=== PATIENT | female | born 1950 | race Caucasian/White ===

== ENCOUNTER → 2017-09-11 | Outpatient (CLI) | payer MEDICARE, OTHER | LOC: GMAB 11:03 | PROVIDERS: ATTEND Family Medicine | DX: I10 Essential (primary) hypertension (principal) ==

== ENCOUNTER → 2019-01-07 | Outpatient (CLI) | payer OTHER | LOC: GMAE 10:24 | PROVIDERS: ATTEND Family Medicine | DX: I10 Essential (primary) hypertension (principal) ==

== ENCOUNTER 2019-01-15 05:41 | Day surgery (SDC) | payer OTHER ==
[2019-01-15] MEDS ORDERED: LACTATED RINGERS 1,000 ML ONE (07:04)
[2019-01-15] MEDS ORDERED: LACTATED RINGERS 1,000 ML IVS ONE (08:00)
[2019-01-15] MEDS ORDERED: LIDOCAINE 1% 10 ML VIAL INJ ONE (10:00)
[2019-01-15] MEDS ORDERED: PROPOFOL 200 MG/20 ML VIAL IV ONE (10:00)
--- NOTE | 2019-01-15 10:07 | OP ---
DATE OF PROCEDURE: 01/15/19 PREOPERATIVE DIAGNOSIS: 1. Need for screening colonoscopy. POSTOPERATIVE DIAGNOSIS: 1. Need for screening colonoscopy. PROCEDURE: 1. Colonoscopy with biopsy times 2 at the rectosigmoid junction. SURGEON: Gustavo Villatoro MD. ANESTHESIA: General. FINDINGS: The colon prep was fine. Two hyperplastic appearing polyps were identified in the rectosigmoid junction. Otherwise, normal. COMPLICATIONS: None. PLAN: Discharge. PROCEDURE: Once anesthesia was given, the patient was in the left lateral position comfortably. Digital rectal exam was normal. She had small external hemorrhoid tags, but no evidence of mass in the rectum. There was normal sphincter tone. The colonoscope was passed under direct visualization and advanced. We did note a couple of hyperplastic polyps at the rectosigmoid which would be biopsied upon withdrawal. We advanced the scope without difficulty to the cecum identifying the ileocecal valve. This was normal. Upon withdrawal, the cecum, ascending, transverse colon and descending were completely normal. The two polyps were identified at the rectosigmoid and were completely removed with forceps. There was no bleeding. Further withdrawal revealed no other polyps seen. Air was withdrawn upon withdrawal. She tolerated the procedure and was taken to Recovery to be discharged. #[id number] MTDD
[2019-01-15 10:41] VITALS: BP 154/75; TEMP 97.9; O2SAT 96
== END 2019-01-15 10:32 | disposition home or self-care (01) ==
LOC: AMB 05:41
PROVIDERS: ATTEND Surgery
DX: Z12.11 Encounter for screening for malignant neoplasm of colon (principal); K63.5 Polyp of colon; I10 Essential (primary) hypertension; Z79.899 Other long term (current) drug therapy
CPT/HCPCS: 00812; 45380; 88305; J3490; J7120

== ENCOUNTER 2019-07-10 05:38 | Day surgery (SDC) | payer OTHER ==
[2019-07-10] MEDS ORDERED: raNITIdine HCL INJ 25 MG/ML VIAL ONE (07:00)
[2019-07-10] MEDS ORDERED: PROPOFOL 200 MG/20 ML VIAL IV ONE (07:00)
[2019-07-10] MEDS ORDERED: LIDOCAINE 1% 10 ML VIAL INJ ONE (07:00)
[2019-07-10] MEDS ORDERED: MAGNESIUM SULFATE INJ 1 GM/2 ML VIAL ONE (07:00)
[2019-07-10] MEDS ORDERED: DEXAMETHASONE INJ 10 MG/ML VIAL ONE (07:00)
[2019-07-10] MEDS ORDERED: KETOROLAC TROMETHAMINE INJ 30 MG/ML VIAL ONE (07:00)
[2019-07-10] MEDS ORDERED: SODIUM CHLORIDE 0.9% 50 ML VIAL ONE (07:00)
[2019-07-10] MEDS ORDERED: ceFAZolin SODIUM 1 GM VIAL ONE (07:00)
[2019-07-10] MEDS ORDERED: LACTATED RINGERS 1,000 ML ONE (07:13)
[2019-07-10] MEDS ORDERED: SCOPOLAMINE PATCH 1.5MG 1 EA TD ONE (07:13)
[2019-07-10] MEDS ORDERED: BUPIVACAINE 0.5% W/EPI 30 ML VIAL INJ ONE ×2 (07:18→09:44)
[2019-07-10] MEDS ORDERED: KETAMINE HCL 100 MG/ML VIAL ONE (09:37)
[2019-07-10] MEDS ORDERED: MIDAZOLAM INJ 2 MG/2 ML VIAL ONE (09:38)
[2019-07-10] MEDS ORDERED: DEXMEDETOMIDINE HCL 200 MCG/2 ML INJ IV ONE (09:38)
[2019-07-10] MEDS ORDERED: fentaNYL CITRATE INJ 50 MCG/ML AMP ONE (09:38)
[2019-07-10] MEDS ORDERED: ROCURONIUM BROMIDE 10 MG/ML VIAL ONE (09:45)
[2019-07-10] MEDS ORDERED: HYDROmorphone HCL INJ 2 MG/ML VIAL ONE (11:11)
[2019-07-10] MEDS ORDERED: ONDANSETRON INJ 4 MG/2 ML VIAL ONE (11:11)
--- NOTE | 2019-07-10 11:47 | OP ---
DATE OF PROCEDURE: 07/10/19 PREOPERATIVE DIAGNOSIS: 1. Recurrent incisional hernia. POSTOPERATIVE DIAGNOSIS: 1. Incarcerated recurrent incisional hernia. PROCEDURE: 1. Repair of recurrent incarcerated incisional hernia with mesh. 2. Partial omental resection. SURGEON: Gustavo Villatoro MD. ANESTHESIA: General. FINDINGS: As described. SPECIMEN: Omentum, hernia contents. MESH: 2.5-inch Ventralex ST was used. PROCEDURE: General anesthesia was induced. She was prepped and draped in sterile fashion. She had a transverse incision over the umbilicus previously. The hernia was palpated inferolateral to the left, so a transverse incision was made over this. Subcutaneous tissue was taken down. We identified the hernia sac. This was opened. It was filled with a moderate amount of omentum, probably a ball about 8 to 9 cm. This was dissected down to the fascial opening, which was only about 3 to 3.5 cm. We ligated the omentum off here and removed it, also ligating the sac and scar tissue. The remainder of omentum was able to be pushed back into the abdomen. I freed up the scars from previous surgery that were on the anterior abdominal wall, so our mesh could fit. There was evidence of a mesh medial to this on the midline. It was still intact and well incorporated. This recurrence just came out lateral to that. After I freed up everything and refreshed the edges of the hernia back to better fascia, the 2.5-inch Ventralex was folded and placed in preperitoneal plane, placed in the abdominal cavity. It was lying nice and flat. We then began closure with multiple 0 PDS pop-offs with the center 3 or 4 sutures incorporation the tail. The tail was then trimmed and buried with the closure. The closure seemed to be more than adequate. The areas was injected with local anesthesia on both sides. The wound was closed in two layers with absorbable suture. Dressing was applied. She was awakened and taken to Recovery to be discharged. #[id number] cc: Inga Worrell MD [facility]
[2019-07-10] MEDS ORDERED: HYDROcodone 5MG/APAP 325MG 1 EA TAB ONE (12:05)
[2019-07-16 02:55] VITALS: BP 153/96; TEMP 97.4; O2SAT 91
== END 2019-07-10 12:53 | disposition home or self-care (01) ==
LOC: AMB 05:38
PROVIDERS: ATTEND Surgery
DX: K43.0 Incisional hernia with obstruction, without gangrene (principal); I10 Essential (primary) hypertension; Z90.710 Acquired absence of both cervix and uterus; Z96.653 Presence of artificial knee joint, bilateral; Z79.899 Other long term (current) drug therapy
CPT/HCPCS: 00832; 36415; 49566; 49568; 80048; 85014; 85018; 88304; A4216; J0690; J1100; J1170; J1885; J2250; J2405; J2780; J3010; J3475; J3490; J7120

== ENCOUNTER → 2020-06-22 | Outpatient (CLI) | payer OTHER | LOC: GMAE 11:05 | PROVIDERS: ATTEND Family Medicine | DX: I10 Essential (primary) hypertension (principal); E78.2 Mixed hyperlipidemia ==